=== PATIENT | female | born 1970 | race African-American/Black ===

== ENCOUNTER 2020-03-02 21:24 | Emergency (ER) | payer SELFPAY ==
[~2020-03-02] VITALS: Ht 167.6 cm; Wt 68.0 kg
[2020-03-02 23:00] LABS: BASOPHILS % 0.8 % (0.0-2.0); EOSINOPHILS % 0.8 % (0.0-5.0); HEMATOCRIT. 44.4 % (36.0-48.0); HEMOGLOBIN. 14.2 g/dL (12.0-16.0); LYMPHOCYTES % 40.6 % (20.0-50.0); MEAN CORPUSCULAR HEMOGLOBIN 29.7 pg (28.0-32.0); MEAN CORPUSCULAR VOLUME 92.5 fL (81.0-99.0); MEAN PLATELET VOLUME 9.1 fl (7.4-10.4); MONOCYTES % 8.5 % (2.0-8.0); NEUTROPHILS % 49.3 % (40.0-76.0); PLATELET 182 x1000/uL (130-400); RED CELL DISTRIBUTION WIDTH 14.4 % (11.6-14.6)
[2020-03-02 23:06] LABS: CLARITY URINE CLEAR (CLEAR); COLOR URINE YELLOW (YELLOW); KETONES URINE NEGATIVE (NEGATIVE); LEUKOCYTE ESTERASE URINE NEGATIVE (NEGATIVE); NITRITE URINE NEGATIVE (NEGATIVE); OCCULT BLOOD URINE TRACE (NEGATIVE); PROTEIN URINE NEGATIVE (NEGATIVE); SPECIFIC GRAVITY URINE 1.006 (1.005-1.030); UROBILINOGEN URINE 0.2 E.U./dL (0.2-1.0)
[2020-03-02 23:07] LABS: CHLORIDE 107 mEq/L (98-107)
[2020-03-02 23:17] LABS: *AMPHETAMINES SCREEN URINE NEGATIVE (NEGATIVE); *BARBITURATES SCREEN URINE NEGATIVE (NEGATIVE); *BENZODIAZEPINES SCREEN URINE NEGATIVE (NEGATIVE); METHADONE URINE SCREEN NEGATIVE (NEGATIVE); OPIATES URINE SCREEN NEGATIVE (NEGATIVE)
[2020-03-02 23:18] LABS: CANNABINOID URINE SCREEN NEGATIVE (NEGATIVE); PHENCYCLIDINE URINE SCREEN NEGATIVE (NEGATIVE)
[2020-03-02 23:30] LABS: *COCAINE SCREEN URINE PRESUMTIVE POSITIVE (NEGATIVE)
[2020-03-02 23:31] LABS: ETHANOL BLOOD 308 mg/dL
[2020-03-03] MEDS ORDERED: IBUPROFEN 600MG TABLET PO ONE (03:00)
[2020-03-03 03:30] VITALS: BP 128/60
== END 2020-03-03 03:50 | disposition home or self-care (01) ==
LOC: ER 21:24
DX: S30.0XXA Contusion of lower back and pelvis, initial encounter (principal); S39.82XA Other specified injuries of lower back, initial encounter; F10.129 Alcohol abuse with intoxication, unspecified; Y90.8 Blood alcohol level of 240 mg/100 ml or more; W01.0XXA Fall on same level from slipping, tripping and stumbling without subsequent striking against object, initial encounter; Y93.89 Activity, other specified; Y92.9 Unspecified place or not applicable; Z88.0 Allergy status to penicillin
CPT/HCPCS: 36415; 72170; 80053; 80305; 80320; 81003; 85025; 93005; 99285; G0480

== ENCOUNTER 2022-01-27 18:34 | Emergency (ER) | payer SELFPAY ==
[~2022-01-27] VITALS: Ht 167.6 cm; Wt 65.0 kg
[2022-01-28] MEDS ORDERED: KETOROLAC 15MG/ML VIAL IM ONE
[2022-01-28] MEDS ORDERED: ASPIRIN 325MG EC TABLET PO ONE
[2022-01-28 00:24] LABS: BASOPHILS % 0.6 % (0.0-2.0); HEMATOCRIT. 36.8 % (36.0-48.0); HEMOGLOBIN. 12.3 g/dL (12.0-16.0); LYMPHOCYTES % 16.7 % (20.0-50.0); MEAN CORPUSCULAR HEMOGLOBIN 31.7 pg (28.0-32.0); MEAN CORPUSCULAR VOLUME 95.3 fL (81.0-99.0); MEAN PLATELET VOLUME 8.5 fl (7.4-10.4); MONOCYTES % 12.6 % (2.0-8.0); NEUTROPHILS % 70.1 % (40.0-76.0); PLATELET 188 x1000/uL (130-400); RED BLOOD CELL COUNT 3.87 mill/uL (4.2-5.4); RED CELL DISTRIBUTION WIDTH 15.7 % (11.6-14.6)
[2022-01-28 00:32] LABS: CHLORIDE 93 mEq/L (98-107)
[2022-01-28 00:43] LABS: ETHANOL BLOOD < 10 mg/dL
[2022-01-28] MEDS ORDERED: POTASSIUM CHLORIDE 20MEQ TABLET SR PO ONE (01:00)
[2022-01-28] MEDS ORDERED: POTASSIUM CHLORIDE 20MEQ TABLET SR PO NR (03:15)
[2022-01-28 03:40] VITALS: BP 135/82
== END 2022-01-28 05:25 | disposition home or self-care (01) ==
LOC: ER 18:34 → EDBD 18:34 → ER 01-28 05:25
DX: R07.89 Other chest pain (principal); F14.10 Cocaine abuse, uncomplicated; E87.6 Hypokalemia; F10.229 Alcohol dependence with intoxication, unspecified; Y90.0 Blood alcohol level of less than 20 mg/100 ml
CPT/HCPCS: 36415; 71045; 80053; 80320; 83880; 84484; 85025; 96372; 99284; J1885; G0480

== ENCOUNTER 2022-07-04 03:20 | Inpatient (IN) | payer SELFPAY ==
[~2022-07-04] VITALS: Ht 160 cm; Wt 53.5 kg
[2022-07-04] MEDS ORDERED: KETOROLAC 30MG/ML VIAL IV STA (03:43)
[2022-07-04] MEDS ORDERED: ONDANSETRON HCL 4MG/2ML INJ IV STA (03:43)
[2022-07-04] MEDS ORDERED: SODIUM CHLORIDE 0.9% 1,000 ML IV ONE ×2 (03:45→09:00)
[2022-07-04 04:05] LABS: EOSINOPHILS % 0.2 % (0.0-5.0); HEMATOCRIT. 38.5 % (36.0-48.0); HEMOGLOBIN. 12.3 g/dL (12.0-16.0); LYMPHOCYTES % 29.4 % (20.0-50.0); MEAN CORPUSCULAR HEMOGLOBIN 31.3 pg (28.0-32.0); MEAN CORPUSCULAR VOLUME 97.8 fL (81.0-99.0); MEAN PLATELET VOLUME 8.2 fl (7.4-10.4); MONOCYTES % 10.2 % (2.0-8.0); NEUTROPHILS % 59.2 % (40.0-76.0); PLATELET 216 x1000/uL (130-400); RED BLOOD CELL COUNT 3.94 mill/uL (4.2-5.4); RED CELL DISTRIBUTION WIDTH 16.5 % (11.6-14.6)
[2022-07-04 04:15] LABS: CHLORIDE 104 mEq/L (98-107)
[2022-07-04] MEDS ORDERED: HALOPERIDOL LACTATE 5MG/ML VIAL IM ONE (04:15)
[2022-07-04] MEDS ORDERED: MORPHINE SULFATE 4 MG/ML CPJ (NOT FOR IM USE) IV ONE (04:15)
[2022-07-04 04:30] LABS: HCG SCREEN NEGATIVE
[2022-07-04 05:39] LABS: CLARITY URINE CLEAR (CLEAR); COLOR URINE YELLOW (YELLOW); KETONES URINE TRACE (NEGATIVE); LEUKOCYTE ESTERASE URINE NEGATIVE (NEGATIVE); NITRITE URINE NEGATIVE (NEGATIVE); OCCULT BLOOD URINE NEGATIVE (NEGATIVE); PH URINE 7.5 (4.5-8.0); PROTEIN URINE NEGATIVE (NEGATIVE); SPECIFIC GRAVITY URINE 1.009 (1.005-1.030); UROBILINOGEN URINE 0.2 E.U./dL (0.2-1.0)
[2022-07-04] MEDS ORDERED: IPRATROPIUM/ALBUTEROL 0.5-3(2.5)MG/3ML NEB HHN PRN (08:00)
[2022-07-04] MEDS ORDERED: POTASSIUM CHLORIDE INJ 30 MEQ in DEXT 5%/0.9% NACL 1,000 ML IV ONE (08:00)
[2022-07-04] MEDS ORDERED: ACETAMINOPHEN 650MG SUPP PR PRN (08:00)
[2022-07-04] MEDS ORDERED: ACETAMINOPHEN 325MG TABLET PO PRN (08:00)
[2022-07-04] MEDS ORDERED: NA PHOS,M-B/NA PHOS,DI-BA ENEMA 118ML PR PRN (08:00)
[2022-07-04] MEDS ORDERED: FAMOTIDINE 20MG/2ML VIAL IV SCH (08:00)
[2022-07-04] MEDS ORDERED: ONDANSETRON HCL 4MG/2ML INJ IV PRN (08:00)
[2022-07-04] MEDS ORDERED: MAGNESIUM/ALUMINUM HYDROXIDE/SIMETHICONE 30ML UDC PO PRN (08:00)
[2022-07-04] MEDS ORDERED: CLONIDINE 0.1MG TABLET PO PRN (08:00)
[2022-07-04] MEDS ORDERED: MVI, ADULT NO.1 10 ML, FOLIC ACID 1 MG, THIAMINE HCL 100 MG in SODIUM CHLORIDE 0.9% 1,0... IV SCH ×4 (09:00)
[2022-07-04 09:06] LABS: PROTHROMBIN TIME 10.8 sec (9.6-11.0)
[2022-07-04 09:20] LABS: T4 FREE 1.06 ng/dL (0.76-1.46)
[2022-07-04] MEDS: FAMOTIDINE 20MG/2ML VIAL IV SCH ×2 (09:24→21:25)
[2022-07-04] MEDS: ENOXAPARIN 40MG/0.4ML SYR SUBCUT SCH (09:25)
[2022-07-04] MEDS: KCL 10MEQ/50ML X 3 FOR TOTAL KCL 30MEQ/150ML IV SCH ×4 (10:43→17:53)
[2022-07-04 11:27] VITALS: BP 139/87
[2022-07-04] MEDS: MORPHINE SULFATE 2 MG/ML CPJ (NOT FOR IM USE) IV PRN ×3 (12:34→21:26)
[2022-07-04] MEDS ORDERED: NALOXONE HCL 1 MG/ML 2ML VIAL IV PRN (13:45)
[2022-07-04 14:28] VITALS: BP 143/81
[2022-07-04] MEDS ORDERED: NALOXONE HCL 0.4MG/ML VIAL IV PRN (14:45)
[2022-07-04] MEDS ORDERED: LORAZEPAM 2MG/ML CPJ IM PRN (14:45)
[2022-07-04] MEDS ORDERED: LORAZEPAM 2MG/ML CPJ IV NR (15:00)
[2022-07-04] MEDS ORDERED: CHLORDIAZEPOXIDE 25MG CAPSULE PO NR (15:00)
[2022-07-04 16:00] VITALS: BP 158/95
[2022-07-04] MEDS: DEXT 5%/0.45% NACL 1000ML 1,000 ML IV SCH (16:12)
[2022-07-04] MEDS ORDERED: HYDRALAZINE 20MG/ML VIAL IV SCH (18:00)
[2022-07-04 19:58] VITALS: BP 164/101
[2022-07-04] MEDS: ACETAMINOPHEN 325MG TABLET PO PRN (20:02)
[2022-07-04] MEDS: CHLORDIAZEPOXIDE 25MG CAPSULE PO SCH (22:08)
[2022-07-05 00:02] VITALS: BP 151/91
[2022-07-05] MEDS: HYDRALAZINE 20MG/ML VIAL IV SCH ×4 (00:12→17:59)
[2022-07-05] MEDS: DEXT 5%/0.45% NACL 1000ML 1,000 ML IV SCH ×3 (01:23→20:56)
[2022-07-05] MEDS: MORPHINE SULFATE 2 MG/ML CPJ (NOT FOR IM USE) IV PRN (01:32)
[2022-07-05 04:18] VITALS: BP 147/77
[2022-07-05 06:12] LABS: BASOPHILS % 0.2 % (0.0-2.0); HEMATOCRIT. 36.9 % (36.0-48.0); HEMOGLOBIN. 12.2 g/dL (12.0-16.0); LYMPHOCYTES % 7.8 % (20.0-50.0); MEAN CORPUSCULAR HEMOGLOBIN 31.9 pg (28.0-32.0); MEAN CORPUSCULAR VOLUME 96.5 fL (81.0-99.0); MEAN PLATELET VOLUME 8.6 fl (7.4-10.4); MONOCYTES % 11.9 % (2.0-8.0); NEUTROPHILS % 80.1 % (40.0-76.0); PLATELET 207 x1000/uL (130-400); RED BLOOD CELL COUNT 3.82 mill/uL (4.2-5.4)
[2022-07-05] MEDS: CHLORDIAZEPOXIDE 25MG CAPSULE PO SCH ×3 (06:18→21:44)
[2022-07-05] MEDS: AMLODIPINE 5MG TABLET PO SCH ×2 (06:52→17:59)
[2022-07-05 07:38] LABS: HEPATITIS B SURFACE ANTIGEN NEGATIVE
[2022-07-05 08:00] VITALS: BP 113/73
[2022-07-05 08:11] LABS: CHLORIDE 97 mEq/L (98-107)
[2022-07-05 08:25] LABS: PHOSPHORUS 2.9 mg/dL (2.5-4.9)
[2022-07-05] MEDS ORDERED: KCL 20MEQ/100ML PREMIX 100 ML IV SCH (08:45)
[2022-07-05] MEDS ORDERED: LEVOFLOXACIN 750MG PREMIX 150 ML IV SCH (09:00)
[2022-07-05] MEDS ORDERED: MAGNESIUM 2 G PREMIX 50 ML IV NR (09:00)
[2022-07-05] MEDS ORDERED: POTASSIUM CHLORIDE 20MEQ TABLET SR PO NR (09:30)
[2022-07-05] MEDS: ENOXAPARIN 40MG/0.4ML SYR SUBCUT SCH (09:37)
[2022-07-05] MEDS: FAMOTIDINE 20MG/2ML VIAL IV SCH ×2 (09:37→20:57)
[2022-07-05] MEDS: TAMSULOSIN HCL 0.4MG SR CAPSULE PO SCH (09:39)
[2022-07-05 12:00] VITALS: BP 106/66
[2022-07-05] MEDS: DOCUSATE SODIUM 250MG CAPSULE PO SCH ×2 (15:47→17:59)
[2022-07-05 16:00] VITALS: BP 88/55
[2022-07-05] MEDS: POLYETHYLENE GLYCOL 3350 (17GM) 1 DOSE PACK PO SCH (18:00)
[2022-07-05] MEDS: ACETAMINOPHEN 325MG TABLET PO PRN (18:13)
[2022-07-05] MEDS ORDERED: SODIUM CHLORIDE 0.9% 500 ML IV ONE (19:00)
[2022-07-05 20:00] VITALS: BP 82/51
[2022-07-05 20:29] LABS: FOLIC ACID (FOLATE) SERUM 5.7 ng/mL (>5.38)
[2022-07-06] VITALS: BP 129/63
[2022-07-06 04:00] VITALS: BP 91/58
[2022-07-06] MEDS: HYDRALAZINE 20MG/ML VIAL IV SCH ×2 (06:00)
[2022-07-06 06:18] LABS: BASOPHILS % 0.1 % (0.0-2.0); EOSINOPHILS % 0.1 % (0.0-5.0); HEMATOCRIT. 31.5 % (36.0-48.0); HEMOGLOBIN. 10.5 g/dL (12.0-16.0); LYMPHOCYTES % 19.3 % (20.0-50.0); MEAN CORPUSCULAR HEMOGLOBIN 32.6 pg (28.0-32.0); MEAN CORPUSCULAR VOLUME 98.3 fL (81.0-99.0); MEAN PLATELET VOLUME 8.9 fl (7.4-10.4); MONOCYTES % 12.9 % (2.0-8.0); NEUTROPHILS % 67.6 % (40.0-76.0); PLATELET 152 x1000/uL (130-400); RED BLOOD CELL COUNT 3.21 mill/uL (4.2-5.4)
[2022-07-06] MEDS: CHLORDIAZEPOXIDE 25MG CAPSULE PO SCH ×4 (06:31→23:00)
[2022-07-06] MEDS: ACETAMINOPHEN 325MG TABLET PO PRN (06:44)
[2022-07-06] MEDS: DEXT 5%/0.45% NACL 1000ML 1,000 ML IV SCH ×2 (06:55→17:28)
[2022-07-06 07:05] LABS: CHLORIDE 100 mEq/L (98-107)
[2022-07-06 08:00] VITALS: BP 80/40
[2022-07-06] MEDS ORDERED: POTASSIUM CHLORIDE 20MEQ TABLET SR PO SCH (08:00)
[2022-07-06] MEDS ORDERED: MAGNESIUM 2 G PREMIX 50 ML IV NR (09:00)
[2022-07-06] MEDS ORDERED: POTASSIUM CHLORIDE INJ 30 MEQ in SODIUM CHLORIDE 0.9% 500 ML IV SCH (09:00)
[2022-07-06] MEDS: TAMSULOSIN HCL 0.4MG SR CAPSULE PO SCH (09:00)
[2022-07-06] MEDS ORDERED: SODIUM CHLORIDE 0.9% 500 ML IV ONE (09:15)
[2022-07-06] MEDS ORDERED: THIAMINE HCL 100MG TABLET PO NR (09:15)
[2022-07-06] MEDS: POLYETHYLENE GLYCOL 3350 (17GM) 1 DOSE PACK PO SCH (10:21)
[2022-07-06] MEDS: DOCUSATE SODIUM 250MG CAPSULE PO SCH ×2 (10:22→17:00)
[2022-07-06] MEDS: FAMOTIDINE 20MG/2ML VIAL IV SCH ×3 (10:23→23:00)
[2022-07-06] MEDS: ENOXAPARIN 40MG/0.4ML SYR SUBCUT SCH (10:23)
[2022-07-06 10:44] LABS: CHLORIDE 99 mEq/L (98-107)
[2022-07-06] MEDS ORDERED: LEVOFLOXACIN 500MG PREMIX 100 ML IV SCH (11:00)
[2022-07-06 12:00] VITALS: BP 96/58
[2022-07-06 16:00] VITALS: BP 101/56
[2022-07-06 20:00] VITALS: BP 108/78
[2022-07-06 20:55] LABS: BASOPHILS % 0.3 % (0.0-2.0); HEMATOCRIT. 36.6 % (36.0-48.0); HEMOGLOBIN. 11.7 g/dL (12.0-16.0); MEAN CORPUSCULAR HEMOGLOBIN 32.1 pg (28.0-32.0); MEAN CORPUSCULAR VOLUME 100.4 fL (81.0-99.0); MEAN PLATELET VOLUME 9.5 fl (7.4-10.4); MONOCYTES % 11.5 % (2.0-8.0); NEUTROPHILS % 72.2 % (40.0-76.0); PLATELET 184 x1000/uL (130-400); RED BLOOD CELL COUNT 3.64 mill/uL (4.2-5.4)
[2022-07-06 20:59] LABS: CHLORIDE 101 mEq/L (98-107)
[2022-07-07] MEDS ORDERED: FAMOTIDINE 20MG TABLET PO SCH (09:00)
== END 2022-07-07 00:10 | disposition left against medical advice (07) | DRG 282 ==
LOC: ER 03:20 → 3WST 06:50
PROVIDERS: ADMIT Internal Medicine; ATTEND Internal Medicine
DX: K85.20 Alcohol induced acute pancreatitis without necrosis or infection (principal); E46 Unspecified protein-calorie malnutrition; K76.0 Fatty (change of) liver, not elsewhere classified; R16.0 Hepatomegaly, not elsewhere classified; E87.6 Hypokalemia; I10 Essential (primary) hypertension; K86.2 Cyst of pancreas; Z53.29 Procedure and treatment not carried out because of patient's decision for other reasons; B17.9 Acute viral hepatitis, unspecified; F10.229 Alcohol dependence with intoxication, unspecified; F14.10 Cocaine abuse, uncomplicated; Z88.0 Allergy status to penicillin; Z98.891 History of uterine scar from previous surgery; Z68.20 Body mass index [BMI] 20.0-20.9, adult
CPT/HCPCS: 36415; 71045; 74176; 76700; 80048; 80053; 80061; 80076; 81003; 82607; 82746; 83605; 83735; 84100; 84145; 84439; 84443; 84703; 85025; 85379; 86705; 86709; 86803; 87015; 87045; 87340; 87427; 87449; 93005; 93970; 97162; 97166; 97530; 97535; 99291; C1893; J0360; J1630; J1650; J1885; J1956; J2270; J2310; J2405; J3411; J3475; J3480; J3490; J7030; J7040

== ENCOUNTER 2022-07-08 19:00 | Inpatient (IN) | payer SELFPAY ==
[~2022-07-08] VITALS: Ht 167.6 cm; Wt 54.9 kg
[2022-07-08 23:20] LABS: CHLORIDE 102 mEq/L (98-107)
[2022-07-08 23:50] LABS: HEMATOCRIT. 30.4 % (36.0-48.0); HEMOGLOBIN. 9.7 g/dL (12.0-16.0); MEAN CORPUSCULAR HEMOGLOBIN 31.5 pg (28.0-32.0); MEAN CORPUSCULAR VOLUME 98.3 fL (81.0-99.0); MEAN PLATELET VOLUME 8.6 fl (7.4-10.4); PLATELET 301 x1000/uL (130-400); RED BLOOD CELL COUNT 3.09 mill/uL (4.2-5.4); RED CELL DISTRIBUTION WIDTH 15.6 % (11.6-14.6)
[2022-07-08 23:55] LABS: HCG SCREEN NEGATIVE
[2022-07-09] MEDS ORDERED: POTASSIUM CHLORIDE 20MEQ/PACKET PO ONE ×2 (01:00→01:45)
[2022-07-09] MEDS ORDERED: CHLORDIAZEPOXIDE 25MG CAPSULE PO ONE (01:30)
[2022-07-09] MEDS ORDERED: KCL 20MEQ/100ML PREMIX 100 ML IV NR (04:00)
[2022-07-09] MEDS ORDERED: MORPHINE SULFATE 2 MG/ML CPJ (NOT FOR IM USE) IV PRN (04:00)
[2022-07-09] MEDS ORDERED: ACETAMINOPHEN 325MG TABLET PO PRN ×2 (04:00)
[2022-07-09] MEDS ORDERED: CLONIDINE 0.1MG TABLET PO PRN (04:00)
[2022-07-09] MEDS ORDERED: IPRATROPIUM/ALBUTEROL 0.5-3(2.5)MG/3ML NEB HHN PRN (04:00)
[2022-07-09] MEDS ORDERED: LORAZEPAM 0.5MG TABLET PO PRN (04:00)
[2022-07-09 05:08] LABS: PLATELET ESTIMATE NORMAL
[2022-07-09] MEDS ORDERED: MVI, ADULT NO.1 10 ML, FOLIC ACID 1 MG, THIAMINE HCL 100 MG in SODIUM CHLORIDE 0.9% 1,0... IV SCH ×4 (05:30)
[2022-07-09 05:54] LABS: CREATINE KINASE 40 IU/L (26-192); CREATINE KINASE MB FRACTION < 1.0 ng/mL (0.5-3.6); D-DIMER 1.62 mg/L FEU (<0.50); PROTHROMBIN TIME 10.8 sec (9.6-11.0)
[2022-07-09 05:55] LABS: PHOSPHORUS 1.9 mg/dL (2.5-4.9)
[2022-07-09] MEDS ORDERED: MAGNESIUM 2 G PREMIX 50 ML IV ONE (06:00)
[2022-07-09] MEDS: DEXT 5%/0.45% NACL 1000ML 1,000 ML IV SCH (08:11)
[2022-07-09] MEDS: ONDANSETRON HCL 4MG/2ML INJ IV SCH ×4 (08:13→22:50)
[2022-07-09] MEDS ORDERED: LEVOFLOXACIN 500MG PREMIX 100 ML IV SCH (08:45)
[2022-07-09] MEDS ORDERED: NALOXONE HCL 0.4MG/ML VIAL IV PRN (08:45)
[2022-07-09 09:30] VITALS: BP 125/83
[2022-07-09] MEDS ORDERED: METRONIDAZOLE 500 MG PREMIX 100 ML IV SCH (10:00)
[2022-07-09] MEDS: ENOXAPARIN 40MG/0.4ML SYR SUBCUT SCH (10:40)
[2022-07-09] MEDS: FAMOTIDINE 20MG/2ML VIAL IV SCH ×2 (10:41→20:43)
[2022-07-09 12:00] VITALS: BP 124/81
[2022-07-09] MEDS: GABAPENTIN 100MG CAPSULE PO SCH ×2 (13:52→22:50)
[2022-07-09] MEDS: CHLORDIAZEPOXIDE 25MG CAPSULE PO SCH ×2 (13:52→22:50)
[2022-07-09] MEDS ORDERED: POTASSIUM PHOS,M-BASIC-D-BASIC 20 MMOL in DEXT 5% WATER 243.3333 ML IV NR (14:30)
[2022-07-09 15:27] LABS: CHLORIDE 107 mEq/L (98-107)
[2022-07-09 16:00] VITALS: BP 118/75
[2022-07-09] MEDS: ASCORBIC ACID 500 MG TABLET PO SCH (17:18)
[2022-07-09] MEDS: FERROUS SULFATE 325MG TABLET PO SCH (17:18)
[2022-07-09] MEDS ORDERED: FERROUS SULFATE 325MG TABLET PO SCH (17:20)
[2022-07-09 17:33] LABS: *AMPHETAMINES SCREEN URINE NEGATIVE (NEGATIVE); *BARBITURATES SCREEN URINE NEGATIVE (NEGATIVE); *BENZODIAZEPINES SCREEN URINE PRESUMTIVE POSITIVE (NEGATIVE); *COCAINE SCREEN URINE NEGATIVE (NEGATIVE); CANNABINOID URINE SCREEN NEGATIVE (NEGATIVE); METHADONE URINE SCREEN NEGATIVE (NEGATIVE); OPIATES URINE SCREEN PRESUMTIVE POSITIVE (NEGATIVE); PHENCYCLIDINE URINE SCREEN NEGATIVE (NEGATIVE)
[2022-07-09 17:46] LABS: CREATINE KINASE 32 IU/L (26-192); CREATINE KINASE MB FRACTION < 1.0 ng/mL (0.5-3.6)
[2022-07-09] MEDS ORDERED: LEVOFLOXACIN 500MG PREMIX 100 ML IV NR (18:00)
[2022-07-09 19:49] VITALS: BP 121/80
[2022-07-10 00:50] VITALS: BP 130/85
[2022-07-10] MEDS: DEXT 5%/0.45% NACL 1000ML 1,000 ML IV SCH ×2 (00:53→10:49)
[2022-07-10 03:49] VITALS: BP 125/88
[2022-07-10] MEDS: ONDANSETRON HCL 4MG/2ML INJ IV SCH ×2 (06:10→09:47)
[2022-07-10] MEDS: GABAPENTIN 100MG CAPSULE PO SCH ×2 (06:11→14:12)
[2022-07-10] MEDS: CHLORDIAZEPOXIDE 25MG CAPSULE PO SCH ×2 (06:11→14:13)
[2022-07-10 07:17] LABS: HEMATOCRIT. 26.3 % (36.0-48.0); HEMOGLOBIN. 8.6 g/dL (12.0-16.0); MEAN CORPUSCULAR HEMOGLOBIN 31.8 pg (28.0-32.0); MEAN CORPUSCULAR VOLUME 97.4 fL (81.0-99.0); MEAN PLATELET VOLUME 8.4 fl (7.4-10.4); PLATELET 280 x1000/uL (130-400); RED CELL DISTRIBUTION WIDTH 15.8 % (11.6-14.6)
[2022-07-10 08:00] VITALS: BP 103/70
[2022-07-10 08:02] LABS: CHLORIDE 107 mEq/L (98-107)
[2022-07-10 08:17] LABS: AMYLASE 48 IU/L (25-115); HDL CHOLESTEROL 39 mg/dL (40-59); LDL CHOLESTEROL 56 mg/dL (5-100); T4 FREE 1.12 ng/dL (0.76-1.46)
[2022-07-10] MEDS: FAMOTIDINE 20MG/2ML VIAL IV SCH (09:47)
[2022-07-10] MEDS: ENOXAPARIN 40MG/0.4ML SYR SUBCUT SCH (09:47)
[2022-07-10] MEDS: FERROUS SULFATE 325MG TABLET PO SCH (09:48)
[2022-07-10] MEDS: ASCORBIC ACID 500 MG TABLET PO SCH (09:48)
[2022-07-10 10:46] LABS: PLATELET ESTIMATE NORMAL
[2022-07-10] MEDS: KCL 20MEQ/100ML PREMIX 100 ML IV SCH ×2 (10:49→13:01)
[2022-07-10] MEDS ORDERED: NACL IV ONE (11:00)
[2022-07-10] MEDS ORDERED: POTASSIUM CHLORIDE IV ONE (11:00)
[2022-07-10] MEDS ORDERED: DEXT IV ONE (11:00)
[2022-07-10 15:47] VITALS: BP 122/80
[2022-07-11 20:27] LABS: FOLIC ACID (FOLATE) SERUM 6.6 ng/mL (>5.38)
== END 2022-07-10 17:10 | disposition home or self-care (01) | DRG 282 ==
LOC: ER 19:00 → 3WST 07-09 01:42 → EDBEDREQ 07-09 01:49 → EDBEDREQSVC 07-09 01:49 → EDBEDREQTM 07-09 01:49
PROVIDERS: ADMIT Internal Medicine; ATTEND Internal Medicine
DX: K85.20 Alcohol induced acute pancreatitis without necrosis or infection (principal); K76.0 Fatty (change of) liver, not elsewhere classified; D64.9 Anemia, unspecified; E83.42 Hypomagnesemia; E87.6 Hypokalemia; D49.0 Neoplasm of unspecified behavior of digestive system; K86.2 Cyst of pancreas; F10.10 Alcohol abuse, uncomplicated; I10 Essential (primary) hypertension; F19.10 Other psychoactive substance abuse, uncomplicated; K80.20 Calculus of gallbladder without cholecystitis without obstruction; G62.9 Polyneuropathy, unspecified; K21.9 Gastro-esophageal reflux disease without esophagitis; F14.90 Cocaine use, unspecified, uncomplicated; F17.210 Nicotine dependence, cigarettes, uncomplicated; Z98.891 History of uterine scar from previous surgery; Z87.442 Personal history of urinary calculi; Z88.0 Allergy status to penicillin
CPT/HCPCS: 36415; 71045; 74176; 74181; 80048; 80053; 80061; 80305; 82150; 82270; 82550; 82553; 82607; 82728; 82746; 83036; 83540; 83550; 83735; 84100; 84439; 84443; 84481; 84484; 84703; 85025; 85044; 85379; 92610; 93005; 93970; 97162; 97166; 99285; J1650; J1956; J2405; J3411; J3480; J3490; J7030; J7060